=== PATIENT | male | born 1980 | race Caucasian/White ===

== ENCOUNTER 2017-08-02 14:55 | Emergency (ER) | payer BC, OTHER ==
[2017-08-02 15:04] VITALS: BP 131/77
--- NOTE | 2017-08-02 15:39 | CR ---
Conclusions: 37-year-old male injured at work. Interpretation: Focal soft tissue abnormality , posterolaterally, left calf. No underlying fracture tibia or fibular long bone. No dislocation left knee or ankle joint.
--- NOTE | 2017-08-02 15:47 | EDM.PDOC ---
ED HPI GENERAL MEDICAL PROBLEM - General Chief Complaint: Lower Extremity Injury/Pain Stated Complaint: WC, CALF INJURY, [id number] Time Seen by Provider: 08/02/17 15:05 Source of Information: Reports: Patient History Limitations: Reports: No Limitations - History of Present Illness INITIAL COMMENTS - FREE TEXT/NARRATIVE: Patient presents to ER with c/o left lower leg pain. He states while at work a 90 pound hot water heater fell on his left lower leg. He states the area immediately swelled. He has been able to bear weight and walk. Rates the pain a 6/10. Onset: Today, Sudden Location: Reports: Lower Extremity, Left Quality: Reports: Pressure, Throbbing Severity: Moderate Improves with: Reports: Rest Worsens with: Reports: Movement Associated Symptoms: Reports: No Other Symptoms Left Leg Pain Score (Numeric/FACES): 4 - Related Data Allergies Allergy/AdvReac Type Severity Reaction Status Date / Time No Known Allergies Allergy Verified 08/02/17 15:01 Home Meds: Home Meds . [No Known Home Meds] 05/09/14 [History] Past Medical History - Past Health History Medical/Surgical History: Denies Medical/Surgical History Social & Family History - Family History Family Medical History: Noncontributory - Tobacco Use Smoking Status *Q: Current Every Day Smoker Years of Tobacco use: 1 Packs/Tins Daily: 17 Used Tobacco, but Quit: No Second Hand Smoke Exposure: Yes - Caffeine Use Caffeine Use: Reports: Coffee, Soda - Recreational Drug Use Recreational Drug Use: No - Living Situation & Occupation Living situation: Reports: , with Family Occupation: Employed Review of Systems - Review of Systems Review Of Systems: ROS reveals no pertinent complaints other than HPI. ED EXAM, GENERAL - Physical Exam Exam: See Below Exam Limited By: No Limitations General Appearance: Alert, WD/WN, No Apparent Distress Head: Atraumatic, Normocephalic Neck: Normal Inspection Respiratory/Chest: No Respiratory Distress, Lungs Clear, Normal Breath Sounds Cardiovascular: Normal Peripheral Pulses, Regular Rate, Rhythm, No Edema, No Gallop, No JVD, No Murmur, No Rub Peripheral Pulses: 2+: Dorsalis Pedis (L), Dorsalis Pedis (R) GI/Abdominal: Normal Bowel Sounds, Soft, Non-Tender (Male) Exam: Deferred Rectal (Males) Exam: Deferred Back Exam: Normal Inspection, Full Range of Motion Extremities: Leg Pain, Other (swelling/hematoma) Neurological: Alert, Oriented, Normal Cognition Psychiatric: Normal Affect, Normal Mood Skin Exam: Warm, Dry, Intact, Normal Color, No Rash Lymphatic: No Adenopathy Course - Vital Signs Last Recorded V/S: Last Vital Signs Temp 98.2 F 08/02/17 15:02 Pulse 84 08/02/17 15:02 Resp 18 08/02/17 15:02 BP 131/77 08/02/17 15:02 Pulse Ox 97 08/02/17 15:02 - Radiology Interpretation Free Text/Narrative:: Tibia/Fibula xray: No acute findings See rad report Departure - Departure Time of Disposition: 15:43 Disposition: Home, Self-Care 01 Condition: Good Clinical Impression: Hematoma - Discharge Information Instructions: Hematoma, [id number] Forms: ED Department Discharge Additional Instructions: Use kindra wrap for compression to the area. Elevate and ice the leg when possible. Follow up in the clinic in 2-3 days.
== END 2017-08-02 16:00 | disposition home or self-care (01) ==
LOC: DL.ED 14:55
DX: S80.12XA Contusion of left lower leg, initial encounter (principal); F17.210 Nicotine dependence, cigarettes, uncomplicated; X11.8XXA Contact with other hot tap-water, initial encounter
CPT/HCPCS: 73590-LT; 99283

== ENCOUNTER 2020-03-27 14:04 | Emergency (ER) | payer BC ==
[2020-03-27] MEDS ORDERED: Diphtheria,Pertussis(Acell),Tetanus Vaccine 0.5 ML SDV IM ONE (14:24)
[2020-03-27] MEDS ORDERED: Cephalexin 500 MG Cap PO ONE (14:25)
[2020-03-27] MEDS ORDERED: Lidocaine 1% 30 ML SDV INJECT ONE (14:25)
[2020-03-27 14:28] VITALS: BP 131/69; PULSE 90
--- NOTE | 2020-03-27 14:46 | EDM.PDOC ---
ED HPI GENERAL MEDICAL PROBLEM - General Chief Complaint: Upper Extremity Injury/Pain Stated Complaint: NAIL IN HAND Time Seen by Provider: 03/27/20 14:30 Source of Information: Reports: Patient, RN, RN Notes Reviewed History Limitations: Reports: No Limitations - History of Present Illness INITIAL COMMENTS - FREE TEXT/NARRATIVE: Pt presents to ER with c/o having accidentally shot a nail into his left hand with a nail gun. Denies any other injury. Last tetanus vaccine >10yrs ago. Onset: Today, Sudden Duration: Constant Location: Reports: Upper Extremity, Left Quality: Reports: Ache Severity: Moderate Improves with: Reports: None Left Hand Pain Score (Numeric/FACES): 3 - Related Data Allergies Allergy/AdvReac Type Severity Reaction Status Date / Time No Known Allergies Allergy Verified 03/27/20 14:23 Home Meds: Home Meds . [No Known Home Meds] 05/09/14 [History] Past Medical History - Past Health History Medical/Surgical History: Denies Medical/Surgical History HEENT History: Reports: None Cardiovascular History: Reports: None Respiratory History: Reports: None Gastrointestinal History: Reports: None Genitourinary History: Reports: None Musculoskeletal History: Reports: None Neurological History: Reports: None Psychiatric History: Reports: None Endocrine/Metabolic History: Reports: None Hematologic History: Reports: None Immunologic History: Reports: None Oncologic (Cancer) History: Reports: None Dermatologic History: Reports: None - Infectious Disease History Infectious Disease History: Reports: None - Past Surgical History Head Surgeries/Procedures: Reports: None Social & Family History - Family History Family Medical History: Noncontributory - Tobacco Use Smoking Status *Q: Current Every Day Smoker Years of Tobacco use: 15 Packs/Tins Daily: 1 - Caffeine Use Caffeine Use: Reports: None - Recreational Drug Use Recreational Drug Use: No - Living Situation & Occupation Living situation: Reports: , with Family Occupation: Employed Review of Systems - Review of Systems Review Of Systems: Comprehensive ROS is negative, except as noted in HPI. ED EXAM, GENERAL - Physical Exam Exam: See Below Exam Limited By: No Limitations General Appearance: Alert, WD/WN, No Apparent Distress Respiratory/Chest: No Respiratory Distress Cardiovascular: Normal Peripheral Pulses Peripheral Pulses: 3+: Radial (L), Radial (R) Extremities: Normal Range of Motion, Other (Clean nail FB puncture to the left lateral hand, no active bleeding) Neurological: Alert, Oriented, No Motor/Sensory Deficits Psychiatric: Normal Mood Skin Exam: Warm, Dry, Normal Color ED TRAUMA EXTREMITY PROCEDURES - Additional/Other Procedure(s) Other (Free Text) Procedure(s): FB removal left ulnar hand at hypothenar eminence: nail grasped with clean needle nose pliers and removed on first attempt. No complications. Wound cleansed and dressed by RN. Course - Vital Signs Last Recorded V/S: Last Vital Signs Temp 98.3 F 03/27/20 14:23 Pulse 90 03/27/20 14:23 Resp 16 03/27/20 14:23 BP 131/69 03/27/20 14:23 Pulse Ox 98 03/27/20 14:23 - Orders/Labs/Meds Orders: Active Orders 24 hr Category Date Time Status Vaccines to be Administered [RC] PER UNIT ROUTINE Care 03/27/20 14:25 Active Meds: Medications Discontinued Medications Generic Name Dose Route Start Last Admin Trade Name Freq PRN Reason Stop Dose Admin Cephalexin 500 mg 03/27/20 14:25 03/27/20 14:32 Keflex PO 03/27/20 14:26 500 mg ONETIME ONE Administration Diphtheria/Tetanus/Acell Pertussis 0.5 ml 03/27/20 14:24 03/27/20 14:33 Adacel IM 03/27/20 14:25 0.5 ml .ONCE ONE Administration Lidocaine HCl 30 ml 03/27/20 14:25 03/27/20 14:32 Xylocaine-Mpf 1% INJECT 03/27/20 14:26 30 ml ONETIME ONE Administration Departure - Departure Time of Disposition: 14:54 Disposition: Home, Self-Care 01 Condition: Good Clinical Impression: Puncture wound of left hand with foreign body Qualifiers: Encounter type: initial encounter Qualified Code(s): S61.442A - Puncture wound with foreign body of left hand, initial encounter - Discharge Information *PRESCRIPTION DRUG MONITORING PROGRAM REVIEWED*: Not Applicable *COPY OF PRESCRIPTION DRUG MONITORING REPORT IN PATIENT JONY: Not Applicable Instructions: Puncture Wound, [id number] Referrals: PCP,None [Primary Care Provider] - Forms: ED Department Discharge Additional Instructions: Rx: Cephalexin 500mg Your Tetanus vaccine has been up dated and is good for 10 years. Follow up in clinic if any signs of infection develop. Sepsis Event Note - Evaluation Sepsis Screening Result: No Definite Risk - Focused Exam Vital Signs: Vital Signs Temp Pulse Resp BP Pulse Ox 03/27/20 14:23 98.3 F 90 16 131/69 98 Date Exam was Performed: 03/27/20 Time Exam was Performed: 15:01 - My Orders Last 24 Hours: My Active Orders 03/27/20 14:25 Vaccines to be Administered [RC] PER UNIT ROUTINE - Assessment/Plan Last 24 Hours: My Active Orders 03/27/20 14:25 Vaccines to be Administered [RC] PER UNIT ROUTINE
== END 2020-03-27 15:02 | disposition home or self-care (01) ==
LOC: DL.ED 14:04
DX: S61.442A Puncture wound with foreign body of left hand, initial encounter (principal); F17.210 Nicotine dependence, cigarettes, uncomplicated; Z23 Encounter for immunization; W29.4XXA Contact with nail gun, initial encounter
CPT/HCPCS: 73130; 90471; 90715; 99283; A9270; J2001